=== PATIENT | female | born 1975 | race Caucasian/White ===

== ENCOUNTER → 2016-08-15 | Outpatient (CLI) | payer OTHER ==
--- NOTE | 2016-08-16 08:29 | REP ---
BILATERAL DIGITAL SCREENING MAMMOGRAM: 08/15/2016. Comparison right breast ultrasound and bilateral diagnostic mammogram 04/22/2013. Standard two-view mammography performed. The breast parenchyma remains heterogeneously dense in a pattern and distribution similar to the previous studies. This may lessen the sensitivity of mammography. At the noon position of the left breast there is a 11 x 9 mm nodular density. It has fairly smooth margins for most of its circumference. There is no dominant mass, architectural distortion, suspicious cluster of microcalcification or other secondary sign of malignancy. Impression: BIRADS/ACR category 0, incomplete. Additional imaging evaluation required. Nodular density noon position left breast 11 x 9 mm. Needs additional imaging with spot magnified CC and ML images of the left breast and left breast ultrasound. This mammogram was interpreted with the aid of an FDA-approved computer-aided detection system. The patient states she/he has not had a clinical breast exam in over a year. The patient letter being requested is M0. (Dense). Signed by Corey Loja MD 08/16/2016 09:27 P
== END ==
LOC: M RAD 14:13
PROVIDERS: ATTEND Physician Assistant
DX: Z12.31 Encounter for screening mammogram for malignant neoplasm of breast (principal)

== ENCOUNTER → 2016-08-25 | Outpatient (CLI) | payer OTHER ==
--- NOTE | 2016-08-25 11:59 | REP ---
DIAGNOSTIC MAMMOGRAM LEFT BREAST: CLINICAL HISTORY: Mother with breast cancer. Diagnostic mammogram left breast performed and correlated with a recent mammogram of 08/15/2016 and compared to other prior study 04/22/2013. The recent mammogram showed a nodule in the upper left breast. Today's spot compression views again demonstrate this 9 x 11 mm nodule in the upper left breast. Anterior margins are smoothly marginated and well defined while the posterior margins are obscured by dense fibroglandular tissue. Real-time sonographic evaluation of the upper left breast is performed. There are multiple innumerable cysts. A cyst with a septation at 11-o'clock measures 1.0 x 0.7 x 0.7 cm. The cyst at 1-o'clock corresponds to the mammographic abnormality measuring 1.7 x 0.7 x 1.1 cm. Also at 1-o'clock is a hypoechoic nodule 4 x 3 x 4 mm, approximately 5 cm from the nipple. Etiology is indeterminate. Recommend ultrasound guided biopsy. Also at 11-o'clock, there is an ill-defined hypoechoic area 6 mm in diameter with distal acoustic shadowing. Recommend ultrasound guided biopsy of this area. IMPRESSION: There is a hypoechoic nodule at 1-o'clock position 4 mm in diameter. Ultrasound guided biopsy is recommended. At 11-o'clock is an ill-defined hypoechoic area 6 mm in diameter with distal acoustic shadowing. Ultrasound guided biopsy of this area is also recommended. Given the patient's family history and dense breast parenchymal MRI of the breast is recommended. BI-RADS/ACR category 4 mammogram. Suspicious abnormality - biopsy should be considered. Usually requires biopsy. This mammogram was interpreted with the aid of an FDA-approved computer-aided detection system. The patient letter being requested is M4. Signed by Bernardo Dixon MD 08/25/2016 04:15 P
== END ==
LOC: M RAD 09:23
PROVIDERS: ATTEND Physician Assistant
DX: Z12.31 Encounter for screening mammogram for malignant neoplasm of breast (principal)

== ENCOUNTER → 2016-10-02 | Outpatient (CLI) | payer OTHER ==
[~2016-10-02] MED LIST: LIDOCAINE 1% MDV 20ML VIAL As Ordered ONE
--- NOTE | 2016-10-02 14:55 | REP ---
DIAGNOSTIC MAMMOGRAM OF THE LEFT BREAST: Diagnostic mammogram of the left breast performed following ultrasound guided biopsy if a hypoechoic nodule at the 1-o'clock position of the left breast. A metallic clip is seen in the left breast. There is moderately dense fibroglandular tissue. Signed by Bernardo Dixon MD 10/03/2016 03:17 P
--- NOTE | 2016-10-02 17:10 | REP ---
ULTRASOUND GUIDES LEFT BREAST BIOPSY: The procedure was performed under the direct supervision of Dr. Dixon. The patient has a hypoechoic nodule at 1 o'clock position of the left breast measuring 4 mm in diameter. On the same study there is an ill-defied hypoechoic area of 6 mm at the 11 o'clock position. Preliminary sonography today demonstrates the 4 mm nodule at the 1 o'clock position however the nodule at the 11 o'clock position was not able to be reproduced. A biopsy was then performed on the nodule at the 1 o'clock position. The risks and benefits of the procedure were explained to the patient and informed consent was obtained. The left breast nodule was utilized using ultrasound guidance. The skin was prepped and draped in a sterile fashion 1% Xylocaine was used as a local anesthetic. A 13-gauge suction assisted mammotome needle was inserted and 4 core biopsy samples were obtained. A marker clip was placed at the biopsy site. The patient tolerated the procedure well and there were no immediate complications. After the appropriate amount of monitored convalescence the patient was discharged from the department. Reviewed by YOLANDA Pressley 10/03/2016 04:27 PEdited and Signed by Bernardo Dixon MD 10/03/2016 04:57 P
== END ==
LOC: M RADPRO 12:20
PROVIDERS: ATTEND Surgery
DX: D24.2 Benign neoplasm of left breast (principal); Z87.891 Personal history of nicotine dependence; Z91.018 Allergy to other foods; Z79.899 Other long term (current) drug therapy
CPT/HCPCS: 19083; 88305; G0206

== ENCOUNTER → 2017-03-09 | Outpatient (CLI) | payer OTHER ==
--- NOTE | 2017-03-09 10:46 | REP ---
Lumbar spine five views: There are no comparisons. Vertebral body heights, interspacing alignment are normal. The pedicles, facets and sacroiliac articulations are unremarkable. There are tiny osteophytes forming in the anterior margins of L3-L4 compatible with mild degenerative change. Impression: Essentially negative lumbar spine. Signed by Bernardo Garcia MD 03/09/2017 10:37 A
== END ==
LOC: M RAD 09:36 → M LAB 09:36
PROVIDERS: ATTEND Physician Assistant
DX: M54.5 Low back pain (principal)

== ENCOUNTER → 2017-10-09 | Outpatient (CLI) | payer OTHER | LOC: M RAD 09:05 | DX: Z12.31 Encounter for screening mammogram for malignant neoplasm of breast (principal) ==

== ENCOUNTER → 2018-09-17 | Outpatient (REF) | payer OTHER ==
[2018-09-17 10:46] LABS: HEMATOCRIT 37.3 % (36.0-47.0); HEMOGLOBIN 12.2 g/dl (12.0-15.5); MEAN CORPUSCULAR HEMOGLOBIN 29.8 pg (27.0-33.0); MEAN CORPUSCULAR HGB CONC 32.7 g/dl (32.0-36.5); PLATELET COUNT, AUTOMATED 181 10^3/uL (150-450); WHITE BLOOD COUNT 4.5 10^3/uL (4.0-10.0)
[2018-09-17 11:21] LABS: ALBUMIN 3.9 GM/DL (3.2-5.2); ALT/SGPT 24 U/L (12-78); BILIRUBIN,TOTAL 0.4 MG/DL (0.2-1.0); BLOOD UREA NITROGEN 18 MG/DL (7-18); CALCIUM LEVEL 9.3 MG/DL (8.5-10.1); CARBON DIOXIDE LEVEL 30 MEQ/L (21-32); CHLORIDE LEVEL 106 MEQ/L (98-107); CHOLESTEROL LEVEL 174 MG/DL (<200); CHOLESTEROL RISK RATIO 2.949 (<5); CREATININE FOR GFR 0.71 MG/DL (0.55-1.30); FREE T4 0.89 NG/DL (0.76-1.46); GLOMERULAR FILTRATION RATE > 60.0 (>58); GLUCOSE, FASTING 90 MG/DL (70-100); HDL CHOLESTEROL 59 MG/DL (>40); LDL CHOLESTEROL 107 MG/DL (<100); NON-HDL-C 115 MG/DL; POTASSIUM SERUM 4.1 MEQ/L (3.5-5.1); SODIUM LEVEL 142 MEQ/L (136-145); TOTAL PROTEIN 6.4 GM/DL (6.4-8.2); TRIGLYCERIDES LEVEL 41 MG/DL (<150)
[2018-09-17 11:22] LABS: TOTAL 25(OH) VITAMIN D 77.2 NG/ML (30.0-100.0)
== END ==
LOC: M SFHCPLAZ 07:58
PROVIDERS: ATTEND Physician Assistant
DX: K21.9 Gastro-esophageal reflux disease without esophagitis (principal); Z13.220 Encounter for screening for lipoid disorders; E55.9 Vitamin D deficiency, unspecified

== ENCOUNTER → 2018-10-22 | Outpatient (CLI) | payer OTHER ==
--- NOTE | 2018-10-22 12:10 | REPMRS ---
Patient History The patient states she has not had a clinical breast exam in over a year. Family history of breast cancer at age 65 in mother. Benign US guided breast biopsy of the left breast, October 02, 2016. Taking hormonal contraceptives for 4 years. 3D TOMOSYNTHESIS WAS PERFORMED. Digital Mammo Screening Bilat: October 22, 2018 - Exam #: [id number] Bilateral CC and MLO view(s) were taken. Technologist: Malia Murray, Technologist Prior study comparison: October 09, 2017, bilateral digital mammo screening bilat performed at [facility]. October 02, 2016, left breast digital mammo diagnostic unilateral performed at [facility]. FINDINGS: The breast tissue is heterogeneously dense. This may lower the sensitivity of mammography. There has been no change in the appearance of the mammogram from the prior studies. There is a moderate amount of residual fibroglandular tissue which is fairly symmetric. There is no interval development of dominant mass, areas of architectural distortion, or clustered microcalcification typical of malignancy. Assessment: BI-RADS/ACR category 1 mammogram. Negative Mammogram. Recommendation Routine screening mammogram in 1 year (for women over age 40). This mammogram was interpreted with the aid of an FDA-approved computer-aided dectection system. THE LIFETIME RISK OF BREAST CANCER IS 23.3%, THEREFORE SUPPLEMENTAL SCREENING MRI OF THE BREASTS IS RECOMMENDED. Electronically Signed By: Bernardo Dixon MD 10/22/18 [id number]
== END ==
LOC: M RAD 09:32
PROVIDERS: ATTEND Physician Assistant
DX: Z12.31 Encounter for screening mammogram for malignant neoplasm of breast (principal); Z80.3 Family history of malignant neoplasm of breast; Z79.3 Long term (current) use of hormonal contraceptives

== ENCOUNTER → 2019-08-16 | Outpatient (CLI) | payer OTHER ==
--- NOTE | 2019-08-16 14:10 | REP ---
DIGITAL DIAGNOSTIC UNILATERAL RIGHT BREAST MAMMOGRAPHY WITH CAD, 3D TOMOGRAPHY, AND FOCUSED RIGHT BREAST SONOGRAPHY. HISTORY: Palpable lump in the right breast present in the upper outer quadrant for "a few days." Status post a benign ultrasound-guided needle biopsy left breast in 2017. Comparison mammography October 22, 2018 and October 09 2017. MAMMOGRAPHIC FINDINGS: A skin marker is affixed to the skin at the site of the palpable lump. Routine views of the right breast are augmented by magnified focal spot compression CC, MLO, and true mediolateral views. 3D tomography is performed. Heterogeneously dense breast parenchyma is again noted in a pattern which is mammographically unchanged. No spiculation architectural distortion mass or microcalcification is observed mammographically. SONOGRAPHIC FINDINGS: Focused right breast sonography is performed at the site of the palpable lump centered about the 10-o'clock position approximately 9 cm from the nipple. Heterogeneous fibroglandular background echotexture is seen. There are multiple cysts. The largest of these measures 2.2 x 2.1 x 1.3 cm and is located 9 cm from the nipple at the 10-o'clock position likely corresponding to the palpable abnormality. It is a simple cyst by sonography. Posterior to this, there is a 0.5 cm cyst and also at 10-o'clock position approximate 10 cm from the nipple, there is a 0.9 cm cyst. 6 cm from the nipple and 10-o'clock position, there is a 1.2 cm cyst. No sonographically suspicious finding is seen. IMPRESSION: BIRADS 2: BI-RADS/ACR category 2 mammogram. Benign Findings. BIRADS category 2 benign findings. Multiple simple cysts noted in the region of the palpable lump. The largest of these measures 2.2 cm in greatest diameter. This mammogram was interpreted with the aid of an FDA-approved computer-aided detection system. The patient states she had a clinical breast exam in July 2019 The patient letter being requested is M2, dense. This patient's estimated Tyrer-Cuzick lifetime risk assessment for the breast cancer is 23.3 %. Enhanced screening in the form of annual bilateral breast MRI scanning is warranted. Bilateral breast MRI scanning is recommended annually, beginning 6 months from now.
== END ==
LOC: M WHC 09:58
PROVIDERS: ATTEND Nurse Practitioner Family
DX: N63.11 Unspecified lump in the right breast, upper outer quadrant (principal)
CPT/HCPCS: 76642; 77065; G0279

== ENCOUNTER → 2020-02-20 | Outpatient (CLI) | payer OTHER ==
--- NOTE | 2020-02-20 15:21 | REPMRS ---
Patient History The patient states she had a clinical breast exam in January 2020. Family history of breast cancer at age 65 in mother. Benign US guided breast biopsy of the left breast, October 02, 2016. Took hormonal contraceptives for 4 years. 3D TOMOSYNTHESIS WAS PERFORMED. PARTHA Navarrete. Digital Woman Screen Mammo: February 20, 2020 - Exam #: [id number] Bilateral CC and MLO view(s) were taken. Technologist: Shannon Beníetz, Technologist Prior study comparison: August 16, 2019, right breast diagnostic unilateral mammo performed at [facility]. October 22, 2018, bilateral digital mammo screening bilat, performed at [facility]. FINDINGS: The breast tissue is heterogeneously dense. This may lower the sensitivity of mammography. There has been no change in the appearance of the mammogram from the prior studies. There is a moderate amount of residual fibroglandular tissue which is fairly symmetric. There is no interval development of dominant mass, areas of architectural distortion, or clustered microcalcification typical of malignancy. Assessment: BI-RADS/ACR category 1 mammogram. Negative Mammogram. Recommendation Routine screening mammogram in 1 year (for women over age 40). This mammogram was interpreted with the aid of an FDA-approved computer-aided dectection system. THE LIFETIME RISK OF BREAST CANCER IS 23.1%, THEREFORE SUPPLEMENTAL SCREENING MRI OF THE BREASTS IS RECOMMENDED IN 6 MONTHS. Electronically Signed By: Bernardo Dixon MD 02/20/20 [id number]
== END ==
LOC: M WHC 12:30
PROVIDERS: ATTEND Legal Medicine
DX: Z12.31 Encounter for screening mammogram for malignant neoplasm of breast (principal); Z80.3 Family history of malignant neoplasm of breast; Z92.0 Personal history of contraception

== ENCOUNTER → 2020-05-04 | Outpatient (CLI) | payer OTHER | LOC: M LABSMTC 09:39 | PROVIDERS: ATTEND Orthopaedic Surgery | DX: Z01.812 Encounter for preprocedural laboratory examination (principal); Z20.828 Contact with and (suspected) exposure to other viral communicable diseases ==

== ENCOUNTER → 2020-11-01 | Outpatient (REF) | payer OTHER ==
[2020-11-01 13:55] LABS: BASO % 0.8 % (0.0-1.0); EOS # 0.2 10^3/uL (0.0-0.5); EOS % 4.6 % (0.0-3.0); HEMATOCRIT 38.7 % (36.0-47.0); HEMOGLOBIN 12.4 g/dl (12.0-15.5); LYMPH # 0.8 10^3/uL (1.5-5.0); LYMPH % 15.5 % (24.0-44.0); MEAN CORPUSCULAR VOLUME 93.7 fl (80.0-96.0); MONO # 0.5 10^3/uL (0.0-0.8); MONO % 9.2 % (2.0-8.0); NEUTROPHILS # 3.5 10^3/uL (1.5-8.5); NEUTROPHILS % 69.3 % (36.0-66.0); PLATELET COUNT, AUTOMATED 205 10^3/uL (150-450); RED BLOOD COUNT 4.13 10^6/uL (4.00-5.40)
[2020-11-01 15:05] LABS: ALBUMIN 3.6 GM/DL (3.2-5.2); ALT/SGPT 13 U/L (12-78); BILIRUBIN,TOTAL 0.3 MG/DL (0.2-1.0); BLOOD UREA NITROGEN 14 MG/DL (7-18); CALCIUM LEVEL 8.6 MG/DL (8.5-10.1); CARBON DIOXIDE LEVEL 27 MEQ/L (21-32); CHLORIDE LEVEL 108 MEQ/L (98-107); CHOLESTEROL LEVEL 191 MG/DL (<200); CREATININE FOR GFR 0.65 MG/DL (0.55-1.30); GLOMERULAR FILTRATION RATE > 60.0 (>58); GLUCOSE, FASTING 89 MG/DL (70-100); HDL CHOLESTEROL 62 MG/DL (>40); LDL CHOLESTEROL 113 MG/DL (<100); NON-HDL-C 129 MG/DL; POTASSIUM SERUM 4.1 MEQ/L (3.5-5.1); SODIUM LEVEL 141 MEQ/L (136-145); TOTAL PROTEIN 6.3 GM/DL (6.4-8.2); TRIGLYCERIDES LEVEL 79 MG/DL (<150)
[2020-11-01 15:32] LABS: HEMOGLOBIN A1c 4.9 %
== END ==
LOC: M PLALAB 09:54
PROVIDERS: ATTEND Nurse Practitioner Family
DX: Z00.00 Encounter for general adult medical examination without abnormal findings (principal); Z13.228 Encounter for screening for other metabolic disorders; Z13.220 Encounter for screening for lipoid disorders

== ENCOUNTER → 2021-05-20 | Outpatient (CLI) | payer MEDICAID, OTHER | LOC: M WHC 09:05 | PROVIDERS: ATTEND Legal Medicine | DX: Z12.31 Encounter for screening mammogram for malignant neoplasm of breast (principal); Z80.3 Family history of malignant neoplasm of breast ==

== ENCOUNTER → 2021-05-22 | Outpatient (CLI) | payer OTHER | LOC: M PLAIMG 10:03 | PROVIDERS: ATTEND Physician Assistant Surgical | DX: M25.822 Other specified joint disorders, left elbow (principal) ==

== ENCOUNTER → 2022-06-30 | Outpatient (CLI) | payer OTHER, MEDICAID ==
[2022-06-30 18:01] LABS: ALBUMIN 3.7 G/DL (3.2-5.2); ALKALINE PHOSPHATASE 54 U/L (46-116); ALT/SGPT 14 U/L (7.0-40); AST/SGOT 12 U/L (<34); BASO # 0.1 10^3/uL (0.0-0.2); BASO % 0.8 % (0.0-1.0); BILIRUBIN,TOTAL 0.3 MG/DL (0.3-1.2); BLOOD UREA NITROGEN 19 MG/DL (9-23); CALCIUM LEVEL 8.9 MG/DL (8.5-10.1); CARBON DIOXIDE LEVEL 29 MMOL/L (20-31); CHLORIDE LEVEL 104 MMOL/L (98-107); CHOLESTEROL LEVEL 168 MG/DL (<200); CHOLESTEROL RISK RATIO 2.56 (<5); CREATININE FOR GFR 0.82 MG/DL (0.55-1.30); EOS # 0.1 10^3/uL (0.0-0.5); EOS % 0.9 % (0.0-3.0); GLOMERULAR FILTRATION RATE > 60.0 (>58); GLUCOSE, FASTING 80 MG/DL (60-100); HDL CHOLESTEROL 65.4 MG/DL (>40); HEMATOCRIT 37.6 % (36.0-47.0); HEMOGLOBIN 12.3 g/dl (12.0-15.5); LDL CHOLESTEROL 89.2 MG/DL (<100); LYMPH % 13.7 % (24.0-44.0); MEAN CORPUSCULAR HEMOGLOBIN 30.8 pg (27.0-33.0); MEAN CORPUSCULAR HGB CONC 32.7 g/dl (32.0-36.5); MEAN CORPUSCULAR VOLUME 94.2 fl (80.0-96.0); MONO # 0.5 10^3/uL (0.0-0.8); NEUTROPHILS # 5.9 10^3/uL (1.5-8.5); NEUTROPHILS % 77.1 % (36.0-66.0); NON-HDL-C 103 MG/DL; PLATELET COUNT, AUTOMATED 219 10^3/uL (150-450); RED BLOOD COUNT 3.99 10^6/uL (4.00-5.40); SODIUM LEVEL 140 MMOL/L (136-145); TRIGLYCERIDES LEVEL 67 MG/DL (<150); WHITE BLOOD COUNT 7.6 10^3/uL (4.0-10.0)
== END ==
LOC: M PLALAB 13:47
PROVIDERS: ATTEND Nurse Practitioner Family
DX: M25.511 Pain in right shoulder (principal); Z13.220 Encounter for screening for lipoid disorders

== ENCOUNTER → 2023-09-01 | Outpatient (CLI) | payer OTHER | LOC: M RAD 15:03 | PROVIDERS: ATTEND Nurse Practitioner Family | DX: R10.32 Left lower quadrant pain (principal); K40.90 Unilateral inguinal hernia, without obstruction or gangrene, not specified as recurrent ==

== ENCOUNTER 2023-09-14 08:31 | Day surgery (SDC) | payer OTHER ==
[~2023-09-14] VITALS: Ht 167.6 cm; Wt 67.6 kg
[~2023-09-14 08:31] MED LIST changes: +AZEL205.5 NS; +GABA-282 PO; -LIDOCAINE 1% MDV 20ML VIAL As Ordered ONE; +LR 1,000 ML IV SCH; +MELO15TA28 PO; +MIDAZOLAM INJ 2MG/2ML VIAL As Ordered ONE; +STRA18CA PO; +fentaNYL 100 MCG/2 ML INJECTION As Ordered ONE
[2023-09-14] MEDS: FLURBIPROFEN 0.03% OPHTH SOLN 2.5 ML OD SCH (09:47)
[2023-09-14] MEDS: ATROPINE SULFATE 1% OPHTH SOLN 2ML BTL OD SCH (09:47)
[2023-09-14] MEDS: TETRACAINE 0.5% OPHTH SOLN 4ML OD SCH (09:47)
[2023-09-14] MEDS: PHENYLEPHRINE 2.5% OPHTH SOL 2ML OD SCH (09:48)
[2023-09-14] MEDS: LIDOCAINE 1% SDV 5ML VIAL As Ordered ONE (10:38)
[2023-09-14] MEDS: CEFUROXIME 1MG/0.1ML INTRACAMERAL INJ As Ordered ONE (10:38)
[2023-09-14 11:00] VITALS: BP 154/94; TEMP 97.7; O2SAT 100
== END 2023-09-14 11:25 | disposition home or self-care (01) ==
LOC: M SDC 08:31
PROVIDERS: ATTEND Ophthalmology
DX: H25.11 Age-related nuclear cataract, right eye (principal); K40.90 Unilateral inguinal hernia, without obstruction or gangrene, not specified as recurrent; F90.9 Attention-deficit hyperactivity disorder, unspecified type; Z79.899 Other long term (current) drug therapy; F41.9 Anxiety disorder, unspecified; F17.290 Nicotine dependence, other tobacco product, uncomplicated
CPT/HCPCS: 66984; 81025; 92015; J0697; J2250; J3010; V2632

== ENCOUNTER 2023-10-12 10:42 | Day surgery (SDC) | payer OTHER ==
[~2023-10-12] VITALS: Ht 167.6 cm; Wt 67.6 kg
[2023-10-12] MEDS: PHENYLEPHRINE 2.5% OPHTH SOL 2ML OS SCH (11:49)
[2023-10-12] MEDS: FLURBIPROFEN 0.03% OPHTH SOLN 2.5 ML OS SCH (11:49)
[2023-10-12] MEDS: TETRACAINE 0.5% OPHTH SOLN 4ML OS SCH (11:49)
[2023-10-12] MEDS: ATROPINE SULFATE 1% OPHTH SOLN 2ML BTL OS SCH (11:49)
[2023-10-12] MEDS: LIDOCAINE 1% SDV 5ML VIAL As Ordered ONE (13:13)
[2023-10-12] MEDS: CEFUROXIME 1MG/0.1ML INTRACAMERAL INJ As Ordered ONE (13:13)
[2023-10-12 13:40] VITALS: BP 129/80; TEMP 97.9; O2SAT 100
== END 2023-10-12 14:01 | disposition home or self-care (01) ==
LOC: M SDC 10:42
PROVIDERS: ATTEND Ophthalmology
DX: H25.12 Age-related nuclear cataract, left eye (principal); F90.9 Attention-deficit hyperactivity disorder, unspecified type; F41.9 Anxiety disorder, unspecified; Z79.899 Other long term (current) drug therapy; F17.290 Nicotine dependence, other tobacco product, uncomplicated; Z91.018 Allergy to other foods; Z91.02 Food additives allergy status
CPT/HCPCS: 66984; 92015; J0697; J2250; J3010; V2632

== ENCOUNTER → 2024-05-02 | Outpatient (CLI) | payer OTHER ==
[~2024-05-02] MED LIST changes: +GABA-1172 PO; -GABA-282 PO; -LR 1,000 ML IV SCH; -MIDAZOLAM INJ 2MG/2ML VIAL As Ordered ONE; -fentaNYL 100 MCG/2 ML INJECTION As Ordered ONE
== END ==
LOC: M WHC 08:11
PROVIDERS: ATTEND Nurse Practitioner Family
DX: Z12.31 Encounter for screening mammogram for malignant neoplasm of breast (principal)

== ENCOUNTER → 2024-05-11 | Outpatient (CLI) | payer OTHER ==
[2024-05-11 13:49] LABS: BASO % 0.6 % (0.0-1.0); EOS # 0.1 10^3/uL (0.0-0.5); EOS % 1.9 % (0.0-3.0); HEMATOCRIT 40.1 % (36.0-47.0); HEMOGLOBIN 13.3 g/dl (12.0-15.5); LYMPH % 19.3 % (24.0-44.0); MEAN CORPUSCULAR HEMOGLOBIN 30.8 pg (27.0-33.0); MEAN CORPUSCULAR HGB CONC 33.2 g/dl (32.0-36.5); MEAN CORPUSCULAR VOLUME 92.8 fl (80.0-96.0); MONO # 0.4 10^3/uL (0.0-0.8); MONO % 7.6 % (2.0-8.0); NEUTROPHILS # 3.6 10^3/uL (1.5-8.5); NEUTROPHILS % 70.4 % (36.0-66.0); PLATELET COUNT, AUTOMATED 243 10^3/uL (150-450); RED BLOOD COUNT 4.32 10^6/uL (4.00-5.40); WHITE BLOOD COUNT 5.1 10^3/uL (4.0-10.0)
[2024-05-11 14:14] LABS: ALBUMIN 3.7 G/DL (3.2-5.2); ALKALINE PHOSPHATASE 71 U/L (35-104); ALT/SGPT 19 U/L (7.0-40); AST/SGOT 10 U/L (<34); BILIRUBIN,TOTAL 0.6 MG/DL (0.3-1.2); BLOOD UREA NITROGEN 18 MG/DL (9-23); CALCIUM LEVEL 9.6 MG/DL (8.5-10.1); CARBON DIOXIDE LEVEL 30 MMOL/L (20-31); CHLORIDE LEVEL 107 MMOL/L (98-107); CHOLESTEROL LEVEL 170 MG/DL (<200); CHOLESTEROL RISK RATIO 3.01 (<5); CREATININE FOR GFR 0.68 MG/DL (0.55-1.30); GLOMERULAR FILTRATION RATE > 60.0 (>58); GLUCOSE, FASTING 109 MG/DL (60-100); HDL CHOLESTEROL 56.4 MG/DL (>40); LDL CHOLESTEROL 101.8 MG/DL (<100); NON-HDL-C 113.6 MG/DL; POTASSIUM SERUM 4.6 MMOL/L (3.5-5.1); SODIUM LEVEL 142 MMOL/L (136-145); TOTAL PROTEIN 6.6 G/DL (5.7-8.2); TRIGLYCERIDES LEVEL 59 MG/DL (<150)
[2024-05-11 14:18] LABS: THYROID STIMULATING HORMONE 1.851 uIU/ML (0.55-4.78)
[2024-05-11 14:19] LABS: FREE T4 0.98 NG/DL (0.89-1.76)
== END ==
LOC: M PLALAB 11:28
PROVIDERS: ATTEND Nurse Practitioner Family
DX: Z00.00 Encounter for general adult medical examination without abnormal findings (principal); R53.83 Other fatigue; Z13.220 Encounter for screening for lipoid disorders

== ENCOUNTER → 2024-05-16 | Outpatient (CLI) | payer OTHER | LOC: M WHC 13:14 | PROVIDERS: ATTEND Nurse Practitioner Family | DX: Z12.31 Encounter for screening mammogram for malignant neoplasm of breast (principal); R92.333 Mammographic heterogeneous density, bilateral breasts | CPT/HCPCS: 77065; G0279 ==

== ENCOUNTER → 2025-02-07 | Outpatient (CLI) | payer OTHER | LOC: M RAD 06:56 | PROVIDERS: ATTEND Nurse Practitioner | DX: M51.362 Other intervertebral disc degeneration, lumbar region with discogenic back pain and lower extremity pain (principal); M54.16 Radiculopathy, lumbar region ==

== ENCOUNTER → 2025-05-03 | Outpatient (CLI) | payer OTHER | LOC: M WHC 11:42 | PROVIDERS: ATTEND Nurse Practitioner Family | DX: Z12.31 Encounter for screening mammogram for malignant neoplasm of breast (principal); Z53.9 Procedure and treatment not carried out, unspecified reason ==

== ENCOUNTER → 2025-05-10 | Outpatient (CLI) | payer OTHER ==
[2025-05-10 13:53] LABS: BASO # 0.1 10^3/uL (0.0-0.2); BASO % 0.8 % (0.0-1.0); EOS # 0.1 10^3/uL (0.0-0.5); EOS % 0.8 % (0.0-3.0); LYMPH # 0.9 10^3/uL (1.5-5.0); LYMPH % 14.3 % (24.0-44.0); MONO # 0.5 10^3/uL (0.0-0.8); MONO % 8.6 % (2.0-8.0); NEUTROPHILS # 4.7 10^3/uL (1.5-8.5); NEUTROPHILS % 75.0 % (36.0-66.0); PLATELET COUNT, AUTOMATED 261 10^3/uL (150-450)
[2025-05-10 14:33] LABS: ALT/SGPT 15 U/L (7.0-40); AST/SGOT 16 U/L (<34); CALCIUM LEVEL 8.7 MG/DL (8.5-10.1); CARBON DIOXIDE LEVEL 28 MMOL/L (20-31); CHLORIDE LEVEL 104 MMOL/L (98-107); CHOLESTEROL LEVEL 185 MG/DL (<200); CHOLESTEROL RISK RATIO 2.71 (<5); CREATININE FOR GFR 0.73 MG/DL (0.55-1.30); FREE T4 1.07 NG/DL (0.89-1.76); GLOMERULAR FILTRATION RATE > 90.0 (>58); LDL CHOLESTEROL 105.0 MG/DL (<100); NON-HDL-C 116.8 MG/DL; POTASSIUM SERUM 4.6 MMOL/L (3.5-5.1); PTH INTACT 57.2 PG/ML (18.5-88.0); SODIUM LEVEL 142 MMOL/L (136-145); TOTAL 25(OH) VITAMIN D 43.6 NG/ML (20.0-100.0); TRIGLYCERIDES LEVEL 59 MG/DL (<150)
== END ==
LOC: M PLALAB 10:19
PROVIDERS: ATTEND Nurse Practitioner Family
DX: Z00.00 Encounter for general adult medical examination without abnormal findings (principal); E55.9 Vitamin D deficiency, unspecified; R53.83 Other fatigue; Z13.220 Encounter for screening for lipoid disorders

== ENCOUNTER → 2025-05-24 | Outpatient (CLI) | payer OTHER | LOC: M WHC 16:07 | PROVIDERS: ATTEND Nurse Practitioner Family | DX: Z12.31 Encounter for screening mammogram for malignant neoplasm of breast (principal); R92.333 Mammographic heterogeneous density, bilateral breasts ==